=== PATIENT | female | born 1990 | race Caucasian/White ===

== ENCOUNTER 2020-12-10 06:18 | Inpatient (IN) ==
[2020-12-10] MEDS ORDERED: LACTATED RINGERS 1,000 ML IV SCH ×2 (06:30→12:30)
[2020-12-10] MEDS ORDERED: MEPERIDINE 50 MG/1 ML VIAL IV PRN (06:30)
[2020-12-10] MEDS ORDERED: ONDANSETRON 4 MG/2 ML VIAL IV PRN ×2 (06:30→12:22)
[2020-12-10 06:52] LABS: Basophils % 0.3 % (0.0-0.8); Hematocrit 33.9 VOL% (35.7-47.0); Hemoglobin 11.1 GM/DL (12.0-16.0); Immature Granulocytes % 0.4 %; Immature Granulocytes Absolute 0.06 #; Lymphocytes # 4.4 10*3/uL (1.4-4.0); Mean Corpuscular HGB Conc 32.7 GM/DL (32-36); Mean Corpuscular Volume 92.4 FL (87-102); Mean Platelet Volume 10.5 FL (9.6-12.0); Monocytes % 6.4 % (1.7-12.7); Neutrophils % 64.9 % (38.7-73.9); Platelet Count 317 T/CUMM (130-400); Red Blood Count 3.67 MC/CUMM (3.8-5.5); Red Cell Distribution Width 14.2 % (9.3-17.3); White Blood Count 15.7 T/CUMM (4-12)
[2020-12-10 07:12] LABS: Alanine Aminotransferase 14 U/L (13-56); Albumin 2.3 G/DL (3.4-5.0); Alkaline Phosphatase 113 U/L (45-117); Aspartate Amino Transferase 13 U/L (0-37); Bilirubin,Total < 0.39 MG/DL (0.2-1.0); Blood Urea Nitrogen 9 MG/DL (7-18); Calcium 8.6 MG/DL (8.5-10.1); Carbon Dioxide 21 MMOL/L (21-32); Estimated Glom Filtration Rate 159 ML/MIN; Glucose 137 MG/DL (74-106); Osmolality,Calculated 277.5 MOS/KG (273-304); Potassium 3.9 MMOL/L (3.5-5.1); Sodium 139 MMOL/L (136-145); Total Protein 6.5 G/DL (6.4-8.2)
[2020-12-10] MEDS ORDERED: CITRIC ACID/SODIUM CITRATE 30 ML UDCUP PO ONE (09:18)
[2020-12-10] MEDS ORDERED: FAMOTIDINE 20 MG/2 ML VIAL IV ONE (09:18)
[2020-12-10] MEDS ORDERED: ceFAZolin 3,000 MG in SYRINGE 15 EACH IV ONE (09:18)
[2020-12-10] MEDS ORDERED: METHYLERGONOVINE 0.2 MG/1 ML AMP ONE (09:54)
[2020-12-10] MEDS ORDERED: TRANEXAMIC ACID 1,000 MG/10 ML VIAL ONE (09:54)
[2020-12-10] MEDS ORDERED: miSOPROStoL 200 MCG TABLET ONE (09:54)
[2020-12-10] MEDS ORDERED: CARBOPROST TROMETHAMINE 250 MCG/ML AMP IM ONE (09:55)
[2020-12-10] MEDS ORDERED: OXYTOCIN 10 UNIT/ML VIAL IM ONE (09:56)
[2020-12-10] MEDS ORDERED: OXYTOCIN/LR 30 UNIT/1,000 ML BAG IV ONE (09:56)
[2020-12-10] MEDS ORDERED: BUPIVACAINE SPINAL 0.75% 2 ML AMP SPINAL ONE (10:26)
[2020-12-10] MEDS ORDERED: ONDANSETRON 4 MG/2 ML VIAL ONE (10:26)
[2020-12-10] MEDS ORDERED: PHENYLEPHRINE 1 MG/10 ML SYRINGE IV ONE (10:26)
[2020-12-10 10:32] LABS: Bilirubin,Direct < 0.100 MG/DL (0.0-0.20); Uric Acid 4.2 MG/DL (2.6-6.0)
[2020-12-10] MEDS ORDERED: ePHEDrine 50 MG/ML VIAL ONE (11:18)
[2020-12-10 11:31] LABS: INR 0.9; PT Patient Result 9.6 SECS (9.8-11.9); Partial Thromboplastin Time 27.1 SECS (23.9-33.8)
[2020-12-10 11:35] LABS: Cord Arterial Blood HCO3 16.4 MMOL/L
[2020-12-10 11:37] LABS: Cord Venous Blood HCO3 24.5 MMOL/L; Cord Venous Blood PCO2 74.4 MMHG; Cord Venous Blood PO2 < 19.0 MMHG
[2020-12-10 11:53] LABS: Bacteria,Urine Occasional /HPF (Few); Bilirubin,Urine Negative (Negative); Blood, Urine Negative (Negative); Glucose,Urine (UA) Negative (Negative); Ketones,Urine Negative (Negative); Mucus,Urine Occasional /LPF (Occasional); Nitrite,Urine Negative (Negative); Protein,Urine 100 MG/DL; RBC,Urine 10 /HPF (0-4); Squamous Epithelial Cell,Urine Occasional /HPF (0-10); Urine Appearance CLEAR (Clear); Urine Color Yellow (Yellow); Urine Specific Gravity 1.023 (1.001-1.035); Urine Urobilinogen < 2.0 EU/DL (0.2-1.0); WBC,Urine 8 /HPF (0-6)
[2020-12-10] MEDS ORDERED: KETOROLAC 30 MG/1 ML VIAL IV SCH (12:15)
[2020-12-10] MEDS ORDERED: RHO(D) IMMUNE GLOBULIN 300 MCG SYRINGE IM ONE (12:22)
[2020-12-10] MEDS ORDERED: SIMETHICONE CHEW 80 MG TABLET PO PRN (12:22)
[2020-12-10] MEDS ORDERED: ACETAMINOPHEN 325 MG TABLET PO PRN (12:22)
[2020-12-10] MEDS ORDERED: MAGNESIUM HYDROXIDE SUSP 30 ML UDCUP PO PRN (12:22)
[2020-12-10] MEDS ORDERED: OXYTOCIN/LR 20 UNIT/1,000 ML BAG IV ONE (12:22)
[2020-12-10] MEDS ORDERED: ACETAMINOPHEN 500 MG TABLET PO SCH (12:30)
[2020-12-10] MEDS: ACETAMINOPHEN 500 MG TABLET PO SCH (18:20)
[2020-12-10] MEDS: KETOROLAC 30 MG/1 ML VIAL IV SCH (18:20)
[2020-12-10 20:32] LABS: Basophils % 0.2 % (0.0-0.8); Hematocrit 28.3 VOL% (35.7-47.0); Hemoglobin 9.2 GM/DL (12.0-16.0); Immature Granulocytes % 0.4 %; Immature Granulocytes Absolute 0.05 #; Lymphocytes # 3.2 10*3/uL (1.4-4.0); Lymphocytes % 26.2 % (21.3-54.2); Mean Corpuscular HGB Conc 32.5 GM/DL (32-36); Mean Corpuscular Volume 92.2 FL (87-102); Mean Platelet Volume 10.8 FL (9.6-12.0); Monocytes % 5.5 % (1.7-12.7); Neutrophils % 67.7 % (38.7-73.9); Platelet Count 234 T/CUMM (130-400); Red Blood Count 3.07 MC/CUMM (3.8-5.5); Red Cell Distribution Width 14.3 % (9.3-17.3); White Blood Count 12.1 T/CUMM (4-12)
[2020-12-11] MEDS: KETOROLAC 30 MG/1 ML VIAL IV SCH ×2 (00:22→06:11)
[2020-12-11] MEDS: ACETAMINOPHEN 500 MG TABLET PO SCH ×2 (00:22→06:11)
[2020-12-11 03:24] LABS: Basophils % 0.2 % (0.0-0.8); Hematocrit 27.7 VOL% (35.7-47.0); Immature Granulocytes % 0.4 %; Immature Granulocytes Absolute 0.04 #; Lymphocytes # 3.3 10*3/uL (1.4-4.0); Lymphocytes % 30.1 % (21.3-54.2); Mean Corpuscular HGB Conc 32.5 GM/DL (32-36); Mean Corpuscular Volume 93.6 FL (87-102); Mean Platelet Volume 10.4 FL (9.6-12.0); Monocytes % 5.9 % (1.7-12.7); Neutrophils % 63.4 % (38.7-73.9); Platelet Count 239 T/CUMM (130-400); Red Blood Count 2.96 MC/CUMM (3.8-5.5); Red Cell Distribution Width 14.4 % (9.3-17.3); White Blood Count 11.1 T/CUMM (4-12)
[2020-12-11 04:25] LABS: Eosinophils 1 % (0-10); Lymphocytes 28 % (20-55); Segmented Neutrophils 68 % (50-85); Total Cells Counted 100
[2020-12-11 04:26] LABS: Hypochromasia 1+; Microcytosis 1+; Platelet Estimate Adequate
[2020-12-11] MEDS: DOCUSATE SODIUM 100 MG CAPSULE PO SCH ×3 (05:35→20:44)
[2020-12-11] MEDS: METOCLOPRAMIDE 10 MG TABLET PO SCH ×2 (11:43→20:44)
[2020-12-11] MEDS: FERROUS SULFATE 325 MG TABLET PO SCH (11:44)
[2020-12-11] MEDS: IBUPROFEN 800 MG TABLET PO PRN (11:44)
[2020-12-11] MEDS: MULTIVITAMIN (PRENATAL) TABLET PO SCH (11:44)
[2020-12-12] MEDS: IBUPROFEN 800 MG TABLET PO PRN (03:00)
[2020-12-12] MEDS: METOCLOPRAMIDE 10 MG TABLET PO SCH ×2 (06:56→10:54)
[2020-12-12 07:30] VITALS: BP 121/59
[2020-12-12] MEDS: MULTIVITAMIN (PRENATAL) TABLET PO SCH (09:53)
[2020-12-12] MEDS: DOCUSATE SODIUM 100 MG CAPSULE PO SCH (09:54)
[2020-12-12] MEDS: FERROUS SULFATE 325 MG TABLET PO SCH (09:56)
== END 2020-12-12 12:24 | disposition home or self-care (01) | DRG 540 ==
LOC: N.LDOUT 06:18 → N.LD 06:20 → N.OB 15:15
PROVIDERS: ADMIT Obstetrics & Gynecology; ATTEND Obstetrics & Gynecology
PROC: LDCSECT (ICD-10-PCS; 2020-12-10 10:30)